=== PATIENT | male | born 1995 | race Caucasian/White ===

== ENCOUNTER 2019-12-28 14:12 | Emergency (ER) | payer OTHER ==
[~2019-12-28] VITALS: Ht 185.4 cm; Wt 81.7 kg
[2019-12-28 15:04] LABS: ABSOLUTE EOSINOPHILS 0.1 thou/uL (0.0-0.7); ABSOLUTE LYMPHOCYTES 2.2 thou/uL (0.8-5.3); ABSOLUTE MONOCYTES 0.4 thou/uL (0.0-1.2); ABSOLUTE NEUTROPHILS 3.2 thou/uL (1.6-8.1); BASOPHILS 0.8 %; HEMATOCRIT 43.2 % (42.0-52.0); HEMOGLOBIN 15.3 gm/dL (14.0-18.0); LYMPHOCYTES 37.8 %; MCH 30.4 pg (26.0-34.0); MCHC 35.3 g/dL (28.0-37.0); MCV 86.3 fL (80.0-100.0); MONOCYTES 7.3 %; MPV 8.2 fl. (7.2-11.1); NUCLEATED RBCS 0 /100WBC; PLATELET COUNT* 206 thou/uL (150-400); POLYS 53.1 %; RBC 5.01 mil/uL (4.50-6.00); WBC 5.9 thou/uL (4.0-11.0)
[2019-12-28 15:14] LABS: CALCIUM 8.5 mg/dL (8.5-10.1); CREATININE 1.1 mg/dL (0.6-1.3); POTASSIUM 3.6 mmol/L (3.5-5.1)
[2019-12-28 15:18] LABS: ALBUMIN 4.2 g/dL (3.4-5.0); TOTAL BILIRUBIN 0.3 mg/dL (<0.1-1.0); TOTAL PROTEIN 7.8 g/dL (6.4-8.2)
[2019-12-28] MEDS ORDERED: DOUBLE ANTIBIOT14 G1 TOP (15:18)
[2019-12-28] MEDS ORDERED: IBUPROFEN 800800 M1 PO (15:19)
[2019-12-28] MEDS ORDERED: NORCO 5-325 TA1 EAC2 PO (15:19)
[2019-12-28 15:33] LABS: AMP/METHAMP Negative (Negative); BARBITURATES Negative (Negative); BENZODIAZEPINES Negative (Negative); COCAINE Negative (Negative); METHADONE Negative (Negative); OPIATES Negative (Negative); PCP Negative (Negative); THC Negative (Negative)
[2019-12-28 16:05] VITALS: BP 117/76
--- NOTE | 2019-12-28 17:13 | EKG ---
[place] [address] ELECTROCARDIOGRAM REPORT Name: NEDRA OROZCO Room: [facility]#: [id number] Admission: 12/28/19 Attend Phys: Discharge: 12/28/19 Date of : [birth year] Date of Service: 12/28/19 1445 Report #: [id number] THIS REPORT FOR: //name// [facility] ED Test Date: 2019-12-28 Test Time: 14:45:13 Pat Name: NEDRA OROZCO Department: Room: Gender: Biological Aide: [place] : 1995 Requested By: Jordana Hong Order Number: [id number] MD: Riccardo Cason Measurements Intervals [place] Rate: 82 P: 32 FL: 109 QRS: 49 QRSD: 83 T: 38 QT: 377 QTc: 441 Interpretive Statements Sinus rhythm Atrial premature complex Short [place] interval No previous ECG available for comparison Electronically Signed On 12-28-2019 17:13:13 CDT by Riccardo Cason [email or web address] <ELECTRONICALLY SIGNED> By: Riccardo Cason MD, [facility] 12/28/19 1713 1445 1445 Riccardo Cason MD, FACC /EPI
--- NOTE | 2019-12-29 13:15 | EKG ---
[place] [address] ELECTROCARDIOGRAM REPORT Name: NEDRA OROZCO Room: [facility]#: [id number] Admission: 12/28/19 Attend Phys: Discharge: 12/28/19 Date of : [birth year] Date of Service: 12/28/19 1539 Report #: [id number] THIS REPORT FOR: //name// [facility] ED Test Date: 2019-12-28 Test Time: 15:39:50 Pat Name: NEDRA OROZCO Department: Room: Gender: Systems Tester: [facility] : 1995 Requested By: Jordana Hong Order Number: [id number] MD: Riccardo Cason Measurements Intervals [place] Rate: 72 P: 31 LA: 106 QRS: 52 QRSD: 86 T: 38 QT: 385 QTc: 422 Interpretive Statements Sinus rhythm with occasional PAC Short [place] interval Compared to ECG 12/28/2019 14:45:13 No significant change Electronically Signed On 12-29-2019 13:15:40 CDT by Riccardo Cason [email or web address] <ELECTRONICALLY SIGNED> By: Riccardo Cason MD, [facility] 12/29/19 1315 1539 1539 Riccardo Cason MD, [facility] /EPI
== END 2019-12-28 16:07 | disposition home or self-care (01) ==
LOC: M.ERS 14:12
PROVIDERS: Family Medicine; Nurse Practitioner Family
DX: T23.102A Burn of first degree of left hand, unspecified site, initial encounter (principal); T23.101A Burn of first degree of right hand, unspecified site, initial encounter; Z20.828 Contact with and (suspected) exposure to other viral communicable diseases; W86.1XXA Exposure to industrial wiring, appliances and electrical machinery, initial encounter; Y93.89 Activity, other specified; Y92.89 Other specified places as the place of occurrence of the external cause; Y99.0 Civilian activity done for income or pay